=== PATIENT | male | born 1970 | race Two or more races ===

== ENCOUNTER 2024-11-21 16:30 | Inpatient (IN) | payer OTHER ==
[2024-11-21 16:52] VITALS: BMI 26.6
[2024-11-21] MEDS ORDERED: POLYETHYLENE GLYCOL (HEALTHYLAX) 3350 17 GM PACKET PO PRN (17:29)
[2024-11-21] MEDS ORDERED: guaiFENesin 600 MG TABLET.ER (FP) PO PRN (17:29)
[2024-11-21] MEDS ORDERED: BENZOCAINE/MENTHOL (CHLORASEPTIC ) LOZENGE MM PRN (17:29)
[2024-11-21] MEDS ORDERED: hydrOXYzine PAMOATE 25 MG CAPSULE (FP) PO PRN (17:29)
[2024-11-21] MEDS ORDERED: LOPERAMIDE HCL 2 MG CAPSULE PO PRN (17:29)
[2024-11-21] MEDS ORDERED: NALOXONE (NARCAN) HCL 4 MG/0.1 ML SPRAY NS PRN (17:29)
[2024-11-21] MEDS ORDERED: DICYCLOMINE HCL 10 MG CAPSULE PO PRN (17:29)
[2024-11-21] MEDS ORDERED: MAGNESIUM HYDROX 2400MG/30ML ORAL SUSPENSION 30 ML CUP PO PRN (17:29)
[2024-11-21] MEDS ORDERED: BENZONATATE 200 MG CAPSULE PO PRN (17:29)
[2024-11-21] MEDS ORDERED: MAG HYDROX/AL HYDROX/SIMETH 30 ML UNIT-DOSE CUP PO PRN (17:29)
[2024-11-21] MEDS ORDERED: ONDANSETRON *ODT* 4 MG TABLET ONE (17:51)
[2024-11-21] MEDS: ONDANSETRON *ODT* 4 MG TABLET SL PRN (17:59)
[2024-11-21] MEDS ORDERED: TRIMETHOBENZAMIDE HCL 200MG/2ML INJ IM ONE (18:01)
[2024-11-21] MEDS: TRIMETHOBENZAMIDE HCL 200MG/2ML INJ IM ONE (18:04)
[2024-11-21] MEDS: MELATONIN 5 MG TABLETS PO SCH (22:15)
[2024-11-21] MEDS: THIAMINE 100 MG TABLET PO SCH (22:15)
[2024-11-21] MEDS: METHOCARBAMOL 500 MG TABLET PO PRN (22:19)
[2024-11-22] MEDS: PRENATAL VITAMINS W/ FOLIC ACID TABLET (FP) PO SCH (10:19)
[2024-11-22 11:28] LABS: MCHC 32.4 g/dl (32.3-36.5); MEAN CELL VOLUME 101.2 fl (79.0-92.2); MEAN PLT VOLUME 10.4 fl (9.4-12.4); RDW 11.8 % (12.2-16.1)
[2024-11-22 11:44] LABS: GLUCOSE,RANDOM 98 mg/dL (74-106); TOT PROT 6.9 g/dl (6.4-8.2)
[2024-11-22 11:45] LABS: CO2 25 mmol/L (21-32)
[2024-11-22 11:46] LABS: ALK PHOS 69 U/L (40-150)
[2024-11-22 11:49] LABS: SGOT/AST 58 U/L (5-34); SGPT/ALT 28 U/L (0-55)
[2024-11-22 11:50] LABS: CREATININE 0.66 mg/dL (0.55-1.3)
[2024-11-23] MEDS: FERROUS SO4 325 MG TABLET (FP) PO SCH (14:13)
[2024-11-24] MEDS: POTASSIUM CHLORIDE TABS 20 MEQ TABLET.ER (FP) PO ONE (14:08)
[2024-11-25 06:31] VITALS: BP 129/83; PULSE 90; RESP 16; TEMP 98.9
[2024-11-25 12:01] LABS: GLUCOSE,RANDOM 75.0 mg/dL (74-106)
[2024-11-25 12:03] LABS: CO2 27.0 mmol/L (21-32)
[2024-11-25 12:07] LABS: CREATININE 0.71 mg/dL (0.55-1.3)
== END 2024-11-25 08:48 | disposition home or self-care (01) | DRG 775 ==
LOC: YASAS 16:30 → Y3N 18:00
PROVIDERS: ADMIT Neuromusculoskeletal Medicine & OMM; ATTEND Student in an Organized Health Care Education/Training Program
PROC: HZ2ZZZZ Detoxification Services for Substance Abuse Treatment (ICD-10-PCS; principal; 2024-11-21)
DX: F10.230 Alcohol dependence with withdrawal, uncomplicated (principal); F17.210 Nicotine dependence, cigarettes, uncomplicated; E87.6 Hypokalemia; E87.1 Hypo-osmolality and hyponatremia; D64.9 Anemia, unspecified; D53.8 Other specified nutritional anemias; M54.50 Low back pain, unspecified; G89.29 Other chronic pain; R74.8 Abnormal levels of other serum enzymes; Z88.6 Allergy status to analgesic agent
CPT/HCPCS: 36415; 80048; 80053; 80307; 85027; 86780; 93005; 93010; Q0162